=== PATIENT | male | born 1950 | race Two or more races ===

== ENCOUNTER 2024-06-17 18:21 | Inpatient (IN) | payer MEDICARE, MEDICAID ==
[~2024-06-17] VITALS: Ht 182.9 cm; Wt 68.2 kg
[2024-06-17] MEDS ORDERED: NITROGLYCERIN 0.4MG TABLET SL SL PRN (19:30)
[2024-06-17] MEDS ORDERED: MAGNESIUM/ALUMINUM HYDROXIDE/SIMETHICONE 30ML UDC PO PRN (19:30)
[2024-06-17] MEDS ORDERED: DEXTROSE 50% WATER 50ML SYRINGE IV PRN (19:30)
[2024-06-17] MEDS ORDERED: ACETAMINOPHEN 325MG TABLET PO PRN (19:30)
[2024-06-17] MEDS ORDERED: IPRATROPIUM/ALBUTEROL 0.5-3(2.5)MG/3ML NEB HHN PRN (19:30)
[2024-06-17] MEDS ORDERED: CLONIDINE 0.1MG TABLET PO PRN (19:30)
[2024-06-17] MEDS ORDERED: NA PHOS,M-B/NA PHOS,DI-BA ENEMA 118ML PR PRN (19:30)
[2024-06-17 20:00] VITALS: BP 119/71; PULSE 96; RESP 17; TEMP 36.61404; TEMP 36.6404; O2SAT 95
[2024-06-17] MEDS ORDERED: LEVOFLOXACIN 750MG PREMIX 150 ML IV SCH (20:00)
[2024-06-17] MEDS: ATORVASTATIN CALCIUM 40MG TABLET PO SCH (20:28)
[2024-06-17] MEDS: BLOOD SUGAR DIAGNOSTIC STRIP TEST SCH (20:28)
[2024-06-17] MEDS: ENOXAPARIN 80MG/0.8ML SYR SUBCUT SCH (20:28)
[2024-06-17] MEDS: INSULIN LISPRO 100 UNITS/ML SUBCUT SCH (21:29)
[2024-06-17] MEDS: LEVOFLOXACIN 750MG PREMIX 150 ML IV SCH (21:30)
[2024-06-17] MEDS ORDERED: LEVOFLOXACIN 500MG PREMIX 100 ML IV SCH (22:00)
[2024-06-17] MEDS ORDERED: LEVOFLOXACIN 250MG PREMIX 50 ML IV SCH (23:00)
[2024-06-18] MEDS: GUAIFENESIN 200MG/10ML SUGAR FREE UDC PO PRN (06:34)
[2024-06-18 07:05] LABS: CHLORIDE 103 mEq/L (98-107); POTASSIUM 3.6 mEq/L (3.5-5.1); SODIUM 133 mEq/L (136-145)
[2024-06-18 07:06] LABS: CARBON DIOXIDE 22 mEq/L (21-32)
[2024-06-18 07:07] LABS: CALCIUM 8.1 mg/dL (8.7-10.4)
[2024-06-18 07:11] LABS: CREATININE 1.2 mg/dL (0.6-1.3); GLUCOSE 178 mg/dL (70-105); UREA NITROGEN BLOOD 18 mg/dL (9-23)
[2024-06-18 07:13] LABS: ALANINE AMINOTRANSFERASE 22 IU/L (10-49); ALBUMIN 3.1 g/dL (3.2-4.8); ASPARTATE AMINOTRANSFERASE 37 IU/L (<34)
[2024-06-18 07:14] LABS: BILIRUBIN TOTAL 1.7 mg/dL (0.1-1.0); PROTEIN TOTAL 6.5 g/dL (6.0-8.3)
[2024-06-18 07:17] LABS: BASOPHILS % 0.2 % (0.0-2.0); DIFFERENTIAL COMMENT 0; EOSINOPHILS % 0.1 % (0.0-5.0); HEMATOCRIT. 34.5 % (42.0-52.0); HEMOGLOBIN. 11.7 g/dL (14.0-18.0); LYMPHOCYTES % 7.5 % (20.0-50.0); MEAN CORPUSCULAR HEMOGLOBIN 32.6 pg (28.0-32.0); MEAN CORPUSCULAR HGB CONC 33.9 g/dL (31.0-37.0); MEAN CORPUSCULAR VOLUME 96.2 fL (80.0-94.0); MEAN PLATELET VOLUME 9.8 fl (7.4-10.4); MONOCYTES % 7.9 % (2.0-8.0); NEUTROPHILS % 84.3 % (40.0-76.0); PLATELET 270 x1000/uL (130-400); RED BLOOD CELL COUNT 3.59 mill/uL (4.7-6.1); RED CELL DISTRIBUTION WIDTH 13.3 % (11.6-14.6); WHITE BLOOD COUNT 6.4 x1000/uL (4.5-11.0)
[2024-06-18 07:34] LABS: PREALBUMIN < 5.0 mg/dl (10.0-40.0)
[2024-06-18 08:00] VITALS: BP 126/77; PULSE 111; RESP 18; TEMP 36.78072; O2SAT 95
[2024-06-18] MEDS: ASPIRIN 81MG TABLET PO SCH (09:53)
[2024-06-18] MEDS: PANTOPRAZOLE SODIUM 40 MG/VIAL IV SCH (09:54)
[2024-06-18] MEDS: NA PHOS,M-B/NA PHOS,DI-BA ENEMA 118ML PR ONE (13:00)
[2024-06-18] MEDS: LACTULOSE 20G/30ML UDC PO PRN (13:14)
[2024-06-18] MEDS: BISACODYL 10MG SUPP PR PRN (13:15)
[2024-06-18] MEDS: ACETAMINOPHEN 325MG TABLET PO PRN (13:17)
[2024-06-18] MEDS: DOCUSATE SODIUM 100MG CAPSULE PO PRN (13:17)
[2024-06-18] MEDS: FOLIC ACID 1MG TABLET PO SCH (15:52)
[2024-06-18] MEDS: THIAMINE HCL 100MG TABLET PO SCH (15:52)
[2024-06-18 18:37] LABS: CLARITY URINE TURBID (CLEAR); COLOR URINE DARK YELLOW (YELLOW); GLUCOSE URINE 1+ (NEGATIVE); KETONES URINE 2+ (NEGATIVE); LEUKOCYTE ESTERASE URINE 1+ (NEGATIVE); NITRITE URINE POSITIVE (NEGATIVE); OCCULT BLOOD URINE 3+ (NEGATIVE); PH URINE 5.5 (4.5-8.0); PROTEIN URINE 3+ (NEGATIVE); SPECIFIC GRAVITY URINE 1.032 (1.005-1.030)
[2024-06-18 18:57] LABS: BACTERIA URINE 1+; FINE GRANULAR CASTS URINE 0-5 /lpf; RBC URINE TNTC /hpf (0-2); SQUAMOUS EPITHELIAL CELL URINE 1+ /lpf (RARE/1+)
[2024-06-18 20:00] VITALS: BP 128/76; PULSE 97; RESP 18; TEMP 36.05844; O2SAT 96
[2024-06-19 07:31] LABS: CHLORIDE 101 mEq/L (98-107); POTASSIUM 3.6 mEq/L (3.5-5.1); SODIUM 133 mEq/L (136-145)
[2024-06-19 07:32] LABS: CARBON DIOXIDE 21 mEq/L (21-32)
[2024-06-19 07:33] LABS: CALCIUM 8.3 mg/dL (8.7-10.4)
[2024-06-19 07:37] LABS: CREATININE 1.4 mg/dL (0.6-1.3); GLUCOSE 128 mg/dL (70-105); IRON 30 ug/dL (65-175)
[2024-06-19 07:38] LABS: AMMONIA < 17 uMol/L (<32); UREA NITROGEN BLOOD 18 mg/dL (9-23)
[2024-06-19 07:39] LABS: ALANINE AMINOTRANSFERASE 26 IU/L (10-49); ALBUMIN 3.1 g/dL (3.2-4.8); ASPARTATE AMINOTRANSFERASE 37 IU/L (<34)
[2024-06-19 07:40] LABS: BILIRUBIN TOTAL 1.5 mg/dL (0.1-1.0); TOTAL IRON BINDING CAPACITY 659 ug/dl (250-425)
[2024-06-19 07:57] LABS: BASOPHILS % 1.2 % (0.0-2.0); EOSINOPHILS % 0.3 % (0.0-5.0); HEMATOCRIT. 33.1 % (42.0-52.0); HEMOGLOBIN. 11.4 g/dL (14.0-18.0); LYMPHOCYTES % 8.8 % (20.0-50.0); MEAN CORPUSCULAR HEMOGLOBIN 33.1 pg (28.0-32.0); MEAN CORPUSCULAR HGB CONC 34.4 g/dL (31.0-37.0); MEAN CORPUSCULAR VOLUME 96.2 fL (80.0-94.0); MONOCYTES % 6.8 % (2.0-8.0); NEUTROPHILS % 82.9 % (40.0-76.0); PLATELET 348 x1000/uL (130-400); RED BLOOD CELL COUNT 3.44 mill/uL (4.7-6.1); RED CELL DISTRIBUTION WIDTH 13.8 % (11.6-14.6); WHITE BLOOD COUNT 6.4 x1000/uL (4.5-11.0)
[2024-06-19 08:00] VITALS: BP 127/77; PULSE 104; RESP 18; TEMP 36.33624; O2SAT 95
[2024-06-19 09:30] LABS: FOLIC ACID (FOLATE) SERUM 5.67 ng/mL (>5.38)
[2024-06-19] MEDS: LEVOFLOXACIN 250MG TABLET PO SCH (10:06)
[2024-06-19] MEDS: LEVOFLOXACIN 500MG TABLET PO SCH (10:06)
[2024-06-19 12:29] LABS: AMMONIA < 17 uMol/L (<32)
[2024-06-19 12:33] LABS: VITAMIN B12 SERUM 575 pg/mL (211-911)
[2024-06-19] MEDS: FERROUS SULFATE 325MG TABLET PO SCH (13:51)
[2024-06-19 14:57] LABS: *AMPHETAMINES SCREEN URINE NEGATIVE (NEGATIVE); *BARBITURATES SCREEN URINE NEGATIVE (NEGATIVE); *BENZODIAZEPINES SCREEN URINE NEGATIVE (NEGATIVE); *COCAINE SCREEN URINE NEGATIVE (NEGATIVE)
[2024-06-19 14:58] LABS: CANNABINOID URINE SCREEN NEGATIVE (NEGATIVE); ECSTASY MDMA SCREEN URINE NEGATIVE (NEGATIVE); METHADONE URINE SCREEN NEGATIVE (NEGATIVE); OPIATES URINE SCREEN PRESUMPTIVE POSITIVE (NEGATIVE); PHENCYCLIDINE URINE SCREEN NEGATIVE (NEGATIVE)
[2024-06-19] MEDS: MEGESTROL ACETATE 400 MG/10 ML UDC PO SCH (17:22)
[2024-06-19 20:00] VITALS: BP 123/69; PULSE 102; RESP 18; TEMP 36.50292; O2SAT 92
[2024-06-19] MEDS: POLYETHYLENE GLYCOL 3350 (17GM) 1 DOSE PACK PO SCH (21:30)
[2024-06-20 01:21] VITALS: BP 121/70; PULSE 97; RESP 18; O2SAT 94
[2024-06-20] MEDS: LORAZEPAM 2MG/ML INJ IV PRN (01:27)
[2024-06-20 08:00] VITALS: BP 134/76; PULSE 100; RESP 20; TEMP 36.55848; O2SAT 94
[2024-06-20] MEDS: FAMOTIDINE 20MG/2ML VIAL IV SCH (08:34)
[2024-06-20 20:00] VITALS: BP 112/65; PULSE 98; RESP 18; TEMP 36.61404; O2SAT 93
[2024-06-20 20:23] LABS: INR 1.1; PROTHROMBIN TIME 12.1 sec (9.6-11.0)
[2024-06-21 07:20] LABS: CHLORIDE 103 mEq/L (98-107); POTASSIUM 3.5 mEq/L (3.5-5.1); SODIUM 133 mEq/L (136-145)
[2024-06-21 07:21] LABS: CALCIUM 7.8 mg/dL (8.7-10.4); CARBON DIOXIDE 22 mEq/L (21-32)
[2024-06-21 07:26] LABS: CREATININE 1.2 mg/dL (0.6-1.3); GLUCOSE 106 mg/dL (70-105); UREA NITROGEN BLOOD 12 mg/dL (9-23)
[2024-06-21 07:28] LABS: ALANINE AMINOTRANSFERASE 26 IU/L (10-49); ALBUMIN 2.7 g/dL (3.2-4.8); ASPARTATE AMINOTRANSFERASE 46 IU/L (<34); BILIRUBIN TOTAL 1.2 mg/dL (0.1-1.0); PROTEIN TOTAL 6.3 g/dL (6.0-8.3)
[2024-06-21 08:00] VITALS: BP 128/74; PULSE 94; RESP 18; TEMP 36.22512; O2SAT 95
[2024-06-21 08:15] LABS: BASOPHILS % 0.5 % (0.0-2.0); EOSINOPHILS % 0.3 % (0.0-5.0); HEMATOCRIT. 31.1 % (42.0-52.0); HEMOGLOBIN. 10.9 g/dL (14.0-18.0); LYMPHOCYTES % 10.7 % (20.0-50.0); MEAN CORPUSCULAR HEMOGLOBIN 33.2 pg (28.0-32.0); MEAN CORPUSCULAR HGB CONC 34.9 g/dL (31.0-37.0); MEAN CORPUSCULAR VOLUME 95.2 fL (80.0-94.0); MEAN PLATELET VOLUME 9.8 fl (7.4-10.4); MONOCYTES % 8.6 % (2.0-8.0); NEUTROPHILS % 79.9 % (40.0-76.0); PLATELET 326 x1000/uL (130-400); RED BLOOD CELL COUNT 3.27 mill/uL (4.7-6.1); RED CELL DISTRIBUTION WIDTH 13.6 % (11.6-14.6); WHITE BLOOD COUNT 5.1 x1000/uL (4.5-11.0)
[2024-06-21] MEDS: FAMOTIDINE 20MG TABLET PO SCH (10:17)
[2024-06-21] MEDS: SODIUM CHLORIDE 0.9% 1,000 ML IV SCH (15:15)
[2024-06-21] MEDS: CHOLECALCIFEROL (D3) 1000 UNIT TABLET PO SCH (19:21)
[2024-06-21] MEDS ORDERED: NALOXONE HCL 0.4MG/ML 1ML VIAL IV PRN (20:00)
[2024-06-21] MEDS ORDERED: ZOLPIDEM TARTRATE 5MG TABLET PO PRN (20:00)
[2024-06-21] MEDS ORDERED: ACETAMINOPHEN 325MG TABLET PO PRN ×2 (20:00)
[2024-06-21] MEDS ORDERED: DIPHENHYDRAMINE 50MG/ML VIAL IV PRN (20:00)
[2024-06-21] MEDS ORDERED: CLONIDINE 0.1MG TABLET PO PRN (20:00)
[2024-06-21] MEDS ORDERED: MAGNESIUM/ALUMINUM HYDROXIDE/SIMETHICONE 30ML UDC PO PRN (20:00)
[2024-06-21] MEDS ORDERED: ONDANSETRON HCL 4MG/2ML INJ IV PRN (20:00)
[2024-06-21] MEDS ORDERED: TRAMADOL HCL/ACETAMINOPHEN 37.5/325MG TABLET PO PRN (20:00)
[2024-06-21] MEDS ORDERED: SACUBITRIL/VALSARTAN 24MG/26MG TABLET PO SCH (21:00)
[2024-06-21] MEDS ORDERED: PREGABALIN 50 MG CAPSULE PO SCH (21:00)
[2024-06-21] MEDS ORDERED: CARVEDILOL 3.125 MG TABLET PO SCH (21:00)
[2024-06-21] MEDS ORDERED: AMLODIPINE 2.5MG TABLET PO SCH (21:00)
[2024-06-21] MEDS ORDERED: ATORVASTATIN CALCIUM 20MG TABLET PO SCH (21:00)
[2024-06-21 22:00] VITALS: BP 130/80; PULSE 92; RESP 20; TEMP 36.28068; O2SAT 96
[2024-06-22 08:00] VITALS: BP 99/58; PULSE 94; RESP 19; TEMP 36.61404; O2SAT 99
[2024-06-22] MEDS ORDERED: FERROUS SULFATE 325MG TABLET PO SCH (09:00)
[2024-06-22] MEDS ORDERED: POLYETHYLENE GLYCOL 3350 (17GM) 1 DOSE PACK PO SCH (09:00)
[2024-06-22] MEDS ORDERED: SENNOSIDES/DOCUSATE SOD 8.6/50MG TABLET PO SCH (09:00)
[2024-06-22] MEDS ORDERED: CALCIUM ACETATE 667MG CAPSULE PO SCH (09:00)
[2024-06-22] MEDS ORDERED: FLUCONAZOLE 100MG TABLET PO SCH (09:00)
[2024-06-22] MEDS ORDERED: FOLIC ACID/VITAMIN B COMP W-C TABLET PO SCH (09:00)
[2024-06-22] MEDS: LACTULOSE 20G/30ML UDC PO SCH (14:25)
[2024-06-22 19:43] VITALS: BP 139/66; PULSE 76; RESP 18; TEMP 36.05844; O2SAT 97
[2024-06-23 08:00] VITALS: BP 109/63; PULSE 82; RESP 20; TEMP 36.33624; O2SAT 98
[2024-06-23 20:00] VITALS: BP 113/63; PULSE 85; RESP 20; TEMP 36.3918; O2SAT 98
[2024-06-23] MEDS: INSULIN GLARGINE 100 UNITS/ML SUBCUT SCH (22:25)
[2024-06-24 07:52] VITALS: BP 125/71; PULSE 82; RESP 18; TEMP 36.114; O2SAT 98
[2024-06-24 20:00] VITALS: BP 114/67; PULSE 85; RESP 17; TEMP 36.61404; O2SAT 95
[2024-06-24] MEDS: INSULIN GLARGINE 100 UNITS/ML SUBCUT SCH (21:13)
[2024-06-25 08:00] VITALS: BP 139/77; PULSE 82; RESP 16; TEMP 36.16956; O2SAT 99
[2024-06-25] MEDS: FINASTERIDE 5MG TABLET PO SCH (11:34)
[2024-06-25] MEDS: TAMSULOSIN HCL 0.4MG SR CAPSULE PO SCH (11:40)
[2024-06-25 20:00] VITALS: BP 100/60; PULSE 95; RESP 19; TEMP 36.22512; O2SAT 93
[2024-06-26 08:00] VITALS: BP 127/69; PULSE 80; RESP 18; TEMP 36.114; O2SAT 96
[2024-06-26 20:00] VITALS: BP 103/59; PULSE 87; RESP 19; TEMP 36.28068; O2SAT 96
[2024-06-27 08:00] VITALS: BP 135/78; PULSE 87; RESP 18; TEMP 37.2252; O2SAT 99
[2024-06-27 20:00] VITALS: BP 139/88; PULSE 71; RESP 19; TEMP 36.05844; O2SAT 97
[2024-06-28 08:00] VITALS: BP 118/75; PULSE 85; RESP 18; TEMP 36.22512; O2SAT 98
[2024-06-28 20:00] VITALS: BP 128/72; PULSE 89; RESP 18; TEMP 36.44736; O2SAT 96
[2024-06-29] MEDS ORDERED: CEFEPIME 2GM IN DEXT 5% 100ML IV SCH (06:30)
[2024-06-29 08:00] VITALS: BP 116/80; PULSE 111; RESP 22; TEMP 36.22512; O2SAT 98
[2024-06-29] MEDS: CEFEPIME 2GM/100ML 100 ML IV SCH (10:07)
[2024-06-29 10:48] LABS: BASOPHILS % 1.1 % (0.0-2.0); EOSINOPHILS % 1.2 % (0.0-5.0); HEMATOCRIT. 34.1 % (42.0-52.0); HEMOGLOBIN. 11.5 g/dL (14.0-18.0); LYMPHOCYTES % 16.9 % (20.0-50.0); MEAN CORPUSCULAR HEMOGLOBIN 33.4 pg (28.0-32.0); MEAN CORPUSCULAR HGB CONC 33.7 g/dL (31.0-37.0); MEAN CORPUSCULAR VOLUME 98.9 fL (80.0-94.0); MEAN PLATELET VOLUME 8.2 fl (7.4-10.4); MONOCYTES % 7.3 % (2.0-8.0); NEUTROPHILS % 73.5 % (40.0-76.0); PLATELET 385 x1000/uL (130-400); RED BLOOD CELL COUNT 3.45 mill/uL (4.7-6.1); RED CELL DISTRIBUTION WIDTH 14.3 % (11.6-14.6); WHITE BLOOD COUNT 5.4 x1000/uL (4.5-11.0)
[2024-06-29 11:13] LABS: POTASSIUM 5.1 mEq/L (3.5-5.1)
[2024-06-29 11:19] LABS: CREATININE 1.5 mg/dL (0.6-1.3)
[2024-06-29] MEDS: CEFAZOLIN 1000MG PREMIX 50 ML IV SCH (17:27)
[2024-06-29 20:00] VITALS: BP 122/75; PULSE 91; RESP 18; TEMP 36.61404; O2SAT 95
[2024-06-30 08:00] VITALS: BP_SYST 131; BP_SYST 149; BP_DIAS 50; BP_DIAS 72; PULSE 85; RESP 18; TEMP 36.28068; O2SAT 97
[2024-06-30 20:00] VITALS: BP 115/70; PULSE 76; RESP 18; TEMP 36.3918; O2SAT 92
[2024-07-01 06:36] LABS: CALCIUM 8.8 mg/dL (8.7-10.4)
[2024-07-01 06:40] LABS: CREATININE 1.4 mg/dL (0.6-1.3)
[2024-07-01 06:54] LABS: BASOPHILS % 0.8 % (0.0-2.0); EOSINOPHILS % 1.9 % (0.0-5.0); HEMATOCRIT. 31.6 % (42.0-52.0); HEMOGLOBIN. 10.8 g/dL (14.0-18.0); LYMPHOCYTES % 20.3 % (20.0-50.0); MEAN CORPUSCULAR HEMOGLOBIN 33.6 pg (28.0-32.0); MEAN CORPUSCULAR HGB CONC 34.1 g/dL (31.0-37.0); MEAN CORPUSCULAR VOLUME 98.6 fL (80.0-94.0); MEAN PLATELET VOLUME 8.1 fl (7.4-10.4); MONOCYTES % 10.4 % (2.0-8.0); NEUTROPHILS % 66.6 % (40.0-76.0); PLATELET 366 x1000/uL (130-400); RED CELL DISTRIBUTION WIDTH 14.2 % (11.6-14.6); WHITE BLOOD COUNT 5.1 x1000/uL (4.5-11.0)
[2024-07-01 08:00] VITALS: BP 132/76; PULSE 77; RESP 19; TEMP 36.61404; O2SAT 97
[2024-07-01 20:00] VITALS: BP 141/86; PULSE 54; RESP 17; TEMP 36.33624; O2SAT 98
[2024-07-02 08:00] VITALS: BP 126/70; PULSE 68; RESP 18; TEMP 36.22512; O2SAT 98
[2024-07-02 20:00] VITALS: BP 112/62; PULSE 68; RESP 20; TEMP 36.50292; O2SAT 96
[2024-07-03 08:00] VITALS: BP 144/72; PULSE 77; RESP 18; TEMP 36.22512; O2SAT 99
[2024-07-03 20:00] VITALS: BP 109/60; PULSE 69; RESP 18; TEMP 36.114; O2SAT 98
[2024-07-04 08:00] VITALS: BP 129/65; PULSE 69; RESP 19; TEMP 36.6696; O2SAT 96
[2024-07-04] MEDS: INSULIN LISPRO 100 UNITS/ML SUBCUT SCH (09:48)
[2024-07-04] MEDS ORDERED: IPRATROPIUM/ALBUTEROL 0.5-3(2.5)MG/3ML NEB HHN PRN (17:00)
[2024-07-04 20:00] VITALS: BP 112/65; RESP 17; TEMP 36.50292; O2SAT 95
[2024-07-04] MEDS: INSULIN GLARGINE 100 UNITS/ML SUBCUT SCH (22:25)
[2024-07-05 08:00] VITALS: BP 118/60; PULSE 79; RESP 18; TEMP 36.33624; O2SAT 98
[2024-07-05 12:30] LABS: BASOPHILS % 0.9 % (0.0-2.0); EOSINOPHILS % 2.4 % (0.0-5.0); HEMATOCRIT. 33.2 % (42.0-52.0); HEMOGLOBIN. 11.4 g/dL (14.0-18.0); MEAN CORPUSCULAR HEMOGLOBIN 34.2 pg (28.0-32.0); MEAN CORPUSCULAR HGB CONC 34.5 g/dL (31.0-37.0); MEAN CORPUSCULAR VOLUME 99.2 fL (80.0-94.0); MEAN PLATELET VOLUME 8.1 fl (7.4-10.4); NEUTROPHILS % 67.7 % (40.0-76.0); PLATELET 384 x1000/uL (130-400); RED BLOOD CELL COUNT 3.34 mill/uL (4.7-6.1); RED CELL DISTRIBUTION WIDTH 14.9 % (11.6-14.6)
[2024-07-05 12:45] LABS: POTASSIUM 4.8 mEq/L (3.5-5.1)
[2024-07-05 12:51] LABS: CREATININE 1.6 mg/dL (0.6-1.3)
[2024-07-05] MEDS: INSULIN LISPRO 100 UNITS/ML SUBCUT SCH (18:08)
[2024-07-05] MEDS: ERGOCALCIFEROL 50000UNITS CAPSULE PO SCH (18:11)
[2024-07-05 20:00] VITALS: BP 117/70; PULSE 78; RESP 18; TEMP 36.61404
[2024-07-05] MEDS: INSULIN GLARGINE 100 UNITS/ML SUBCUT SCH (21:55)
[2024-07-05] MEDS ORDERED: INSULIN GLARGINE 100 UNITS/ML SUBCUT SCH (22:00)
[2024-07-06 05:45] LABS: POTASSIUM 5.1 mEq/L (3.5-5.1)
[2024-07-06 05:47] LABS: CALCIUM 8.7 mg/dL (8.7-10.4)
[2024-07-06 05:51] LABS: CREATININE 1.5 mg/dL (0.6-1.3)
[2024-07-06 08:00] VITALS: BP 154/85; PULSE 82; RESP 20; TEMP 36.28068; O2SAT 98
[2024-07-06 12:07] LABS: THYROID STIMULATING HORMONE 2.08 uIU/mL (0.55-4.78)
[2024-07-06] MEDS ORDERED: COSYNTROPIN 0.25MG/ML VIAL IV NR (14:00)
[2024-07-06] MEDS: COSYNTROPIN 0.25MG/ML VIAL IV NR (15:20)
[2024-07-06] MEDS: INSULIN LISPRO 100 UNITS/ML SUBCUT SCH (17:00)
[2024-07-06 20:00] VITALS: BP 153/86; PULSE 95; RESP 19; TEMP 36.6696; O2SAT 98
[2024-07-06] MEDS: INSULIN GLARGINE 100 UNITS/ML SUBCUT NR (21:21)
[2024-07-06] MEDS: INSULIN LISPRO 100 UNITS/ML SUBCUT NR (21:21)
[2024-07-06] MEDS: INSULIN GLARGINE 100 UNITS/ML SUBCUT SCH (22:00)
[2024-07-06] MEDS ORDERED: HYDROCORTISONE 10MG TABLET PO SCH (23:15)
[2024-07-06] MEDS: LINAGLIPTIN 5MG TABLET PO SCH (23:15)
[2024-07-07 00:39] LABS: POTASSIUM 4.5 mEq/L (3.5-5.1)
[2024-07-07 00:41] LABS: CALCIUM 8.4 mg/dL (8.7-10.4)
[2024-07-07 00:45] LABS: CREATININE 1.4 mg/dL (0.6-1.3)
[2024-07-07 08:00] VITALS: BP 127/68; PULSE 66; RESP 19; TEMP 36.28068; O2SAT 98
[2024-07-07 09:07] LABS: VITAMIN D 25-OH 18.6 ng/mL (30.0-100.0)
[2024-07-07 10:33] VITALS: BP 127/68; PULSE 66; TEMP 97.3; O2SAT 98
[2024-07-07 11:14] LABS: BASOPHILS % 0.7 % (0.0-2.0); DIFFERENTIAL COMMENT 0; EOSINOPHILS % 2.8 % (0.0-5.0); HEMATOCRIT. 32.9 % (42.0-52.0); HEMOGLOBIN. 10.9 g/dL (14.0-18.0); LYMPHOCYTES % 18.1 % (20.0-50.0); MEAN CORPUSCULAR HEMOGLOBIN 33.1 pg (28.0-32.0); MEAN CORPUSCULAR VOLUME 100.3 fL (80.0-94.0); MEAN PLATELET VOLUME 8.6 fl (7.4-10.4); MONOCYTES % 8.1 % (2.0-8.0); NEUTROPHILS % 70.3 % (40.0-76.0); PLATELET 343 x1000/uL (130-400); RED BLOOD CELL COUNT 3.28 mill/uL (4.7-6.1); RED CELL DISTRIBUTION WIDTH 15.4 % (11.6-14.6); WHITE BLOOD COUNT 5.6 x1000/uL (4.5-11.0)
[2024-07-07 11:34] LABS: POTASSIUM 4.1 mEq/L (3.5-5.1)
[2024-07-07 11:35] LABS: CALCIUM 8.9 mg/dL (8.7-10.4)
[2024-07-07 11:40] LABS: CREATININE 1.3 mg/dL (0.6-1.3)
[2024-07-07] MEDS ORDERED: HYDROCORTISONE 10MG TABLET PO SCH (19:00)
[2024-07-08 08:11] LABS: COMPLEMENT C3 114 mg/dL (82-167); COMPLEMENT C4 21 mg/dL (12-38)
[2024-07-08 10:08] LABS: CYC CITRULLINATED PEP IgG/IgA 9 units (0-19)
[2024-07-09 14:09] LABS: GAD-65 AUTOANTIBODY < 5.0 U/mL (0.0-5.0)
== END 2024-07-07 15:30 | DRG 70 ==
PROVIDERS: ADMIT Physical Medicine & Rehabilitation Spinal Cord Injury Medicine; ATTEND Hospitalist
DX: G93.41 Metabolic encephalopathy (principal); A41.2 Sepsis due to unspecified staphylococcus; G82.50 Quadriplegia, unspecified; J96.21 Acute and chronic respiratory failure with hypoxia; N17.0 Acute kidney failure with tubular necrosis; I21.A1 Myocardial infarction type 2; J18.9 Pneumonia, unspecified organism; E87.20 Acidosis, unspecified; N39.0 Urinary tract infection, site not specified; E87.1 Hypo-osmolality and hyponatremia; E87.0 Hyperosmolality and hypernatremia; I42.9 Cardiomyopathy, unspecified; E46 Unspecified protein-calorie malnutrition; Q25.48 Anomalous origin of subclavian artery; R26.9 Unspecified abnormalities of gait and mobility; G92.8 Other toxic encephalopathy; R53.81 Other malaise; B95.8 Unspecified staphylococcus as the cause of diseases classified elsewhere; I70.8 Atherosclerosis of other arteries; E11.22 Type 2 diabetes mellitus with diabetic chronic kidney disease; D18.03 Hemangioma of intra-abdominal structures; R33.9 Retention of urine, unspecified; E11.65 Type 2 diabetes mellitus with hyperglycemia; E55.9 Vitamin D deficiency, unspecified; E53.8 Deficiency of other specified B group vitamins; D50.9 Iron deficiency anemia, unspecified; I69.320 Aphasia following cerebral infarction; I69.322 Dysarthria following cerebral infarction; I69.391 Dysphagia following cerebral infarction; I12.9 Hypertensive chronic kidney disease with stage 1 through stage 4 chronic kidney disease, or unspecified chronic kidney disease; F09 Unspecified mental disorder due to known physiological condition; F39 Unspecified mood [affective] disorder; F41.9 Anxiety disorder, unspecified; N40.0 Benign prostatic hyperplasia without lower urinary tract symptoms; N18.30 Chronic kidney disease, stage 3 unspecified; R31.29 Other microscopic hematuria; R31.9 Hematuria, unspecified; K56.41 Fecal impaction; I95.1 Orthostatic hypotension; I70.0 Atherosclerosis of aorta; Z68.20 Body mass index [BMI] 20.0-20.9, adult; Z91.81 History of falling; Z85.819 Personal history of malignant neoplasm of unspecified site of lip, oral cavity, and pharynx; Z87.891 Personal history of nicotine dependence; Z92.21 Personal history of antineoplastic chemotherapy; Z83.3 Family history of diabetes mellitus
CPT/HCPCS: 36415; 74018; 80048; 80053; 80061; 80305; 81003; 82024; 82088; 82140; 82270; 82306; 82533; 82550; 82607; 82746; 82962; 83036; 83519; 83540; 83550; 83930; 84134; 84145; 84146; 84153; 84443; 85025; 86160; 86200; 87070; 87077; 87186; 92523; 92610; 97110; 97116; 97162; 97166; 97530; 97535; 97542; C1893; J0690; J0692; J0834; J1650; J1815; J1956; J2060; J2470; J3490; J7030; A4315